=== PATIENT | male | born 1990 | race Caucasian/White ===

== ENCOUNTER 2017-12-19 18:25 | Emergency (ER) | payer SELFPAY ==
[2017-12-19 18:46] VITALS: BP 112/64
--- NOTE | 2017-12-19 18:50 | UC ---
Throat Pain/Nasal Seb HPI - HPI Summary HPI Summary: C/O right sided face and throat pain. A little last night now significantly worse. Difficulty swallowing saliva. - History of Current Complaint Stated Complaint: THROAT PAIN/HARD TO SWALLOW Hx Obtained From: Patient Onset/Duration: Sudden Onset, Lasting Days - 1, Worse Since - today Severity: Moderate Cough: None Associated Signs & Symptoms: Positive: Dysphagia, Sinus Discomfort - right maxillary. Negative: Nasal Discharge - Allergies/Home Medications Allergies/Adverse Reactions: Allergies Allergy/AdvReac Type Severity Reaction Status Date / Time No Known Allergies Allergy Verified 12/19/17 18:40 Home Medications: Home Medications Phenylephrine/Acetaminophn/Cpm [Sinus Congestion-Pain Caplet] 2 tab PO DAILY PRN 12/19/17 [History Confirmed 12/19/17] PMH/Surg Hx/FS Hx/Imm Hx Previously Healthy: Yes - Family History Known Family History: Negative: Cardiac Disease, Hypertension, Diabetes - Social History Occupation: Employed Full-time Lives: With Family Review of Systems ENT: Sore Throat Is Patient Immunocompromised?: No All Other Systems Reviewed And Are Negative: Yes Physical Exam Triage Information Reviewed: Yes Appearance: Ill-Appearing - mild, Pain Distress - with swallowing Vital Signs Reviewed: Yes Eyes: Positive: Conjunctiva Clear ENT: Positive: Pharyngeal erythema - with palatal petechia, TMs normal, Tonsillar swelling - on the right, Hoarse voice Diagnostics - Radiology No standard instances Xray Interpretation: No Acute Changes Radiology Interpretation Completed By: ED Physician Throat Pain/Nasal Course/Dx - Differential Dx/Diagnosis Differential Diagnosis/HQI/PQRI: Epiglottitis, Peritonsillar Abscess, Pharyngitis, Tonsillitis Provider Diagnoses: Peritonsilar abscess Discharge - Sign-Out/Discharge Documenting (check all that apply): Patient Departure - Discharge Plan Condition: Stable Disposition: HOME Prescriptions: Amoxicillin/Clavulanate TAB* [Augmentin TAB 875*] 875 mg PO BID #20 tab predniSONE TAB* [Deltasone 20 MG TAB*] 20 mg PO DAILY #18 tab Patient Education Materials: Peritonsillar Abscess (ED), Amoxicillin/ Clavulanate Potassium (By mouth), Prednisone (By mouth) Referrals: No Primary Care Phys,NOPCP [Primary Care Provider] - - Billing Disposition and Condition Condition: STABLE Disposition: Home
[2017-12-19] MEDS ORDERED: predniSONE TAB* 20 MG PO ONE (19:10)
[2017-12-19] MEDS ORDERED: Amoxicillin/Clavulanate TAB* 875 MG PO ONE (19:10)
--- NOTE | 2017-12-19 19:49 | RAD ---
Indication: Sore throat. 2 views of the soft tissues of neck with no evidence of prevertebral soft tissue swelling. No air-fluid levels are noted. IMPRESSION: No prevertebral soft tissue swelling is noted.
== END 2017-12-19 19:22 | disposition home or self-care (01) ==
LOC: UCCORT 18:25
DX: J36 Peritonsillar abscess (principal)
CPT/HCPCS: 70360; 87651; 99202; A9270-GY; G0463; J7512

== ENCOUNTER → 2018-01-13 20:32 | Emergency (ER) | payer SELFPAY ==
--- NOTE | 2018-01-14 10:46 | UC ---
Discharge - Sign-Out/Discharge Documenting (check all that apply): Post-Discharge Follow Up All imaging exams completed and their final reports reviewed: No Studies - Discharge Plan Referrals: No Primary Care Phys,NOPCP [Primary Care Provider] -
== END | disposition home or self-care (01) ==
LOC: UCCORT 20:32
DX: Z02.5 Encounter for examination for participation in sport (principal)

== ENCOUNTER 2019-09-06 13:20 | Emergency (ER) | payer SELFPAY ==
[2019-09-06 13:53] VITALS: BP 119/74
--- NOTE | 2019-09-06 14:03 | UC ---
Abdominal Pain Male HPI - HPI Summary HPI Summary: 29 yo male had nausea/vomiting and fever on 09/02. [id number] States his work requires him to get a note saying he has been fever free for 72 hours. 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 - History of Current Complaint Chief Complaint: UCGeneralIllness Stated Complaint: NOTE STATING SYMPTOM FREE Time Seen by Provider: 09/06/19 13:49 Hx Obtained From: Patient Onset/Duration: Sudden Onset, Lasting Hours, Resolved - x 3 days Timing: Constant Severity Initially: Moderate Severity Currently: None Pain Intensity: 0 Pain Scale Used: 0-10 Numeric Location: Diffuse Radiates: No Character: Cramping Aggravating Factor(s): Food Alleviating Factor(s): Spontaneous Resolution Associated Signs And Symptoms: Positive: Fever - resolved x 3 days, Nausea - resolved x 3 days, Vomiting - resolved x 3 days, Diarrhea - resolved x 3 days - Allergies/Home Medications Allergies/Adverse Reactions: Allergies Allergy/AdvReac Type Severity Reaction Status Date / Time No Known Allergies Allergy Verified 12/19/17 18:40 Home Medications: Home Medications Amoxicillin/Clavulanate TAB* [Augmentin TAB 875*] 875 mg PO BID #20 tab [Rx] Phenylephrine/Acetaminophn/Cpm [Sinus Congestion-Pain Caplet] 2 tab PO DAILY PRN 12/19/17 [History Confirmed 12/19/17] predniSONE 20 mg TAB [Deltasone 20 MG TAB*] 20 mg PO DAILY #18 tab 12/19/17 [Rx] PMH/Surg Hx/FS Hx/Imm Hx Previously Healthy: Yes - Surgical History Surgical History: None - Family History Known Family History: Negative: Cardiac Disease, Hypertension, Diabetes - Social History Alcohol Use: None Substance Use Type: None Smoking Status (MU): Light Every Day Tobacco Smoker Type: eCigarettes When Did the Patient Quit Smoking/Using Tobacco: actual tobacco 2 mos ago. Pt does use a vape Review of Systems All Other Systems Reviewed And Are Negative: Yes Constitutional: Positive: Negative Skin: Positive: Negative Eyes: Positive: Negative ENT: Positive: Negative Respiratory: Positive: Negative Cardiovascular: Positive: Negative Gastrointestinal: Positive: Negative Genitourinary: Positive: Negative Motor: Positive: Negative Neurovascular: Positive: Negative Musculoskeletal: Positive: Negative Neurological/Mental Status: Positive: Negative Psychological: Positive: Negative Physical Exam Triage Information Reviewed: Yes Appearance: Well-Appearing, No Pain Distress, Well-Nourished Vital Signs: Initial Vital Signs Temp 97.8 F 09/06/19 13:40 Pulse 63 09/06/19 13:40 Resp 16 09/06/19 13:40 BP 119/74 09/06/19 13:40 Pulse Ox 100 09/06/19 13:40 Vital Signs Reviewed: Yes Eye Exam: Normal Eyes: Positive: Conjunctiva Clear ENT: Positive: Hearing grossly normal, Pharynx normal, TMs normal, Uvula midline , Other - + left auricular hematoma. Negative: Nasal congestion, Nasal drainage , Tonsillar swelling, Tonsillar exudate, Trismus, Muffled voice, Hoarse voice Dental Exam: Normal Neck: Positive: Supple, Nontender, No Lymphadenopathy Respiratory: Positive: Lungs clear, Normal breath sounds, No respiratory distress Cardiovascular: Positive: RRR, No Murmur. Negative: Tachycardia Abdomen Description: Positive: Nontender, No Organomegaly Bowel Sounds: Positive: Present Musculoskeletal: Positive: ROM Intact, No Edema Neurological: Positive: Alert Psychological Exam: Normal Skin Exam: Normal Abd Pain Male Course/Dx - Differential Dx/Clinical Impression Provider Diagnosis: Return to work evaluation, History of gastroenteritis Discharge ED - Sign-Out/Discharge Documenting (check all that apply): Patient Departure All imaging exams completed and their final reports reviewed: No Studies - Discharge Plan Condition: Stable Disposition: HOME Forms: *Work Release Referrals: No Primary Care Phys,NOPCP [Primary Care Provider] - - Billing Disposition and Condition Condition: STABLE Disposition: Home
== END 2019-09-06 14:05 | disposition home or self-care (01) ==
LOC: UCCORT 13:20
DX: Z04.89 Encounter for examination and observation for other specified reasons (principal); F17.290 Nicotine dependence, other tobacco product, uncomplicated
CPT/HCPCS: 99211; G0463